=== PATIENT | female | born 1970 | race Native Hawaiian/Other Pacific Islander ===

== ENCOUNTER 2019-01-09 08:36 | Outpatient (CLI) | payer OTHER | END 2019-01-09 08:37 | disposition home or self-care (01) | LOC: C.LAB 08:36 | DX: E03.9 Hypothyroidism, unspecified (principal); E11.9 Type 2 diabetes mellitus without complications; Z00.00 Encounter for general adult medical examination without abnormal findings; E55.9 Vitamin D deficiency, unspecified ==